=== PATIENT | male | born 1995 | race Caucasian/White ===

== ENCOUNTER 2020-10-25 17:07 | Emergency (ER) | payer BC, OTHER ==
[~2020-10-25] VITALS: Ht 175.3 cm; Wt 86.2 kg
[2020-10-25 17:14] VITALS: BP 100/44
[2020-10-25] MEDS ORDERED: LIDOCAINE MPF 1% 10 MG/ML VIAL INJ ONE ×2 (17:20→17:55)
[2020-10-25] MEDS ORDERED: ceFAZolin 1,000 MG VIAL IM ONE (17:20)
[2020-10-25] MEDS ORDERED: MORPHINE SULFATE 4 MG/ML SYR IM ONE (17:25)
[2020-10-25] MEDS ORDERED: CLINDAMYCIN 600 MG/4 ML VIAL IM ONE (17:25)
[2020-10-25] MEDS ORDERED: BACITRACIN OINT 500 UNITS/GM PKT TP ONE (18:23)
[2020-10-25 19:30] VITALS: BP 100/44
== END 2020-10-25 19:30 | disposition home or self-care (01) ==
LOC: MED 17:07
DX: S62.630A Displaced fracture of distal phalanx of right index finger, initial encounter for closed fracture (principal); S61.011A Laceration without foreign body of right thumb without damage to nail, initial encounter; S62.600A Fracture of unspecified phalanx of right index finger, initial encounter for closed fracture; Z88.0 Allergy status to penicillin; W45.8XXA Other foreign body or object entering through skin, initial encounter; Y93.89 Activity, other specified; Y92.89 Other specified places as the place of occurrence of the external cause; Y99.0 Civilian activity done for income or pay
CPT/HCPCS: 11760; 12001; 73130; 96372; 99284; J0690; J2001; J2270; J3490; 11730

== ENCOUNTER 2020-10-27 16:56 | Emergency (ER) | payer BC ==
[~2020-10-27] VITALS: Ht 172.7 cm; Wt 86.2 kg
[2020-10-27 17:01] VITALS: BP 156/95
--- NOTE | 2020-10-27 17:06 | NUR ---
AMBULATED TO BED 5
--- NOTE | 2020-10-27 17:25 | NUR ---
CONSTANTIN WAGGONER AT PT BEDSIDE FOR FURTHER EVALUATION
--- NOTE | 2020-10-27 17:25 | NUR ---
EMT AT PT BEDSIDE
--- NOTE | 2020-10-27 17:29 | NUR ---
25 Y/O MALE C/O 8/10 BURNING PAIN AND NUMBNESS TO RIGHT INDEX AND THUMB X1 HR. PT WAS CUTTING WOOD X2DAYS AGO, CUT R HAND INDEX FINGER AND THUM CUT BOTH TIPS OFF CAME TO [facility]. PT STATED 1 HR AGO, PT STATED IT WAS NUMB/TINGLING. Rx NORCO, BUT NO EFFECTIVE FOR PAIN CONTROL. PT AXO &4 REGULAR UNLABORED BREATHING PMH: DENIES ALLERGIES: PENICILLIN
[2020-10-27] MEDS ORDERED: KETOROLAC 30 MG/ML VIAL IM ONE (17:30)
--- NOTE | 2020-10-27 18:03 | NUR ---
EMT AT PT BEDSIDE FOR WOUND CARE AND DRESSING TO RIGHT INDEX AND THUMB
[2020-10-27 18:30] VITALS: BP 156/95
--- NOTE | 2020-10-27 18:31 | NUR ---
Patient discharged with v/s stable. Written and verbal after care instructions given and explained. Patient verbalized understanding. Ambulatory with steady gait. All questions addressed prior to discharge. Advised to follow up with PMD.
== END 2020-10-27 18:31 | disposition home or self-care (01) ==
LOC: MED 16:56
DX: M79.601 Pain in right arm (principal); Z48.00 Encounter for change or removal of nonsurgical wound dressing; Z88.0 Allergy status to penicillin; Z79.899 Other long term (current) drug therapy
CPT/HCPCS: 96372; 99283; J1885